=== PATIENT | female | born 1985 | race Caucasian/White ===

== ENCOUNTER 2018-03-08 01:16 | Inpatient (IN) | payer BC ==
[2018-03-08 01:48] VITALS: BMI 35.4
[2018-03-08] MEDS ORDERED: Butorphanol Tartrate 1 MG/ML VIAL SLOW IVP PRN (04:28)
[2018-03-08] MEDS ORDERED: NS / Oxytocin 40 units/1000ml 1,000 ML IV PRN (04:28)
[2018-03-08] MEDS ORDERED: Ondansetron HCl/PF 4 MG/2 ML Vial IVP PRN ×2 (04:28→05:43)
[2018-03-08] MEDS ORDERED: Ibuprofen 800 MG TAB PO PRN (04:28)
[2018-03-08] MEDS ORDERED: HYDROcodone/Acetaminophen 5/325 mg Tablet PO PRN (04:28)
[2018-03-08] MEDS ORDERED: Lidocaine 1% (PF) 30 ML VIAL SC PRN (04:28)
[2018-03-08] MEDS ORDERED: Lactated Ringer's 1,000 ML IV SCH ×2 (04:30)
[2018-03-08] MEDS ORDERED: Bupivacaine 0.5% 20 ML, fentaNYL Citrate/PF 400 MCG in Sodium Chloride 0.9% 72 ML EPIDURAL SCH (04:45)
[2018-03-08 04:47] LABS: Hemoglobin 9.9 g/dL (12.0-16.0); Mean Corpuscular HGB CONC 33.8 g/dL (32.0-36.0); Mean Corpuscular Hemoglobin 29.2 pg (27.0-31.0); Mean Corpuscular Volume 86.2 fl (81.0-99.0); Mean Platelet Volume 7.3 fL (7.4-10.4); Platelet Count 280 thou/uL (130-400); RBC Distribution Width 12.8 % (11.5-14.5); White Blood Cell (WBC) Count 8.8 thou/uL (4.8-10.8)
[2018-03-08 05:22] LABS: HBSAg Index 0.17 S/CO (0-0.99); Hep B Surf Ag Non-Reactive S/CO (NonReactive)
[2018-03-08] MEDS ORDERED: Lactated Ringer's 500 ML IV PRN (05:43)
[2018-03-08] MEDS ORDERED: diphenhydrAMINE 50 MG/ML VIAL IVP PRN (05:43)
[2018-03-08] MEDS ORDERED: Naloxone HCl 0.4 mg/ml Vial IVP PRN ×2 (05:43)
[2018-03-08] MEDS ORDERED: ePHEDrine/0.9% NaCl/PF SYRINGE 50 mg/10 ml SLOW IVP PRN (05:43)
[2018-03-08] MEDS ORDERED: Promethazine HCl 25 MG/ML VIAL IM PRN (05:43)
[2018-03-08] MEDS ORDERED: Acetaminophen 325 MG TAB PO PRN (05:43)
[2018-03-08] MEDS ORDERED: Eucerin (Mineral Oil/Petrolatum,White) 30 gm Jar TOP PRN (05:43)
[2018-03-08] MEDS ORDERED: Fentanyl 4mcg/Marcaine 0.1% Cassette 100 ML EPIDURAL SCH (05:45)
[2018-03-08] MEDS ORDERED: Communication Order-Pharmacy FS SCH (05:45)
[2018-03-08] MEDS ORDERED: NS w/ Oxytocin 10 units 500 ML IVPB SCH (06:30)
[2018-03-08 07:25] LABS: Syphilis Antibody Nonreactive (Nonreactive); Syphilis Antibody Index 0.04 S/CO (<1.00 Non-Reactive)
--- NOTE | 2018-03-08 08:35 | PDOC.OPDEL ---
OB Operative/Delivery Note Delivery Dr/Surgeon: Chris Pre-Delivery Diagnosis: active labor Procedure/Post Delivery Dx: spontaneous vaginal delivery Weeks gestation: 40 Anesthesia: epidural - Findings A Sex: male Weight: 9 lb - 1 min: 9 - 5 min: 9 - Additional Findings/Plan Placenta delivered: spontaneous Repaired Obstetrical Laceration: 1st degree Estimated blood loss: 200ml Compilations/Other Findings: none Post delivery plan: routine recovery
[2018-03-08] MEDS ORDERED: diphenhydrAMINE 25 MG CAP PO PRN (08:37)
[2018-03-08] MEDS ORDERED: Bisacodyl 10 MG SUPP PR PRN (08:37)
[2018-03-08] MEDS ORDERED: Benzocaine/Menthol 20-0.5% 60 ML CAN TOP PRN (08:37)
[2018-03-08] MEDS ORDERED: Preparation H Ointment 28 GM TUBE PR PRN (08:37)
[2018-03-08] MEDS ORDERED: Adacel (T-DAP) 0.5 ML VIAL IM ONE (08:37)
[2018-03-08] MEDS ORDERED: Acetaminophen/Codeine 30-300mg Tablet PO PRN ×2 (08:37)
[2018-03-08] MEDS ORDERED: Lanolin Ointment 7 GM TUBE TOP PRN (08:37)
[2018-03-08] MEDS ORDERED: Milk Of Magnesia 30 ML UDCUP PO PRN (08:37)
[2018-03-08] MEDS ORDERED: Misoprostol 200 MCG TAB VAG SCH (08:45)
[2018-03-08] MEDS ORDERED: NS / Oxytocin 40 units/1000ml 1,000 ML IV SCH (08:45)
[2018-03-08] MEDS: Prenatal Vitamin 1 TAB PO SCH (12:58)
[2018-03-08] MEDS: Docusate Calcium (SURFAK) 240 MG CAP PO SCH ×2 (12:58→21:34)
[2018-03-08] MEDS: Ibuprofen 800 MG TAB PO SCH ×2 (13:09→21:34)
[2018-03-08] MEDS ORDERED: Bupivacaine HCl 0.5%/Epinephrine 1:200,000/PF 30 ml Vial ONE (17:08)
[2018-03-08] MEDS: Ferrous Sulfate 325 MG TAB PO SCH (17:09)
[2018-03-09] MEDS: Ibuprofen 800 MG TAB PO SCH ×2 (05:24→14:20)
--- NOTE | 2018-03-09 07:26 | PDOC.PP ---
Post Progress Note Post Day #: 1 PO intake tolerated: yes Flatus: yes Ambulation: yes Vital Signs (12 hours) Temp Pulse Resp BP 03/09/18 05:24 98.0 F 73 18 110/64 03/09/18 00:50 97.9 F 77 18 116/70 03/08/18 20:10 98.2 F 69 18 118/68 Weight Weight 240 lb - Physical Examination General: NAD Cardiovascular: no m/r/g, RRR Respiratory: clear to auscultation bilaterally, non-labored breathing Abdominal: + bowel sounds, lochia, no distention, appropriately TTP Result Diagrams: 03/08/18 04:28 Additional Labs: Post Labs Blood Type A POSITIVE 03/08/18 04:28 Hep Bs Antigen Non-Reactive S/CO (NonReactive) 03/08/18 04:28 - Assessment/Plan Post day 1-doing well. Discharge home. F/u in 6 weeks. Doing well with ibuprofen for pain.
[2018-03-09 07:54] VITALS: BP 119/82; TEMP 97.7
[2018-03-09] MEDS: Ferrous Sulfate 325 MG TAB PO SCH (09:08)
[2018-03-09] MEDS: Docusate Calcium (SURFAK) 240 MG CAP PO SCH (09:09)
[2018-03-09] MEDS: Prenatal Vitamin 1 TAB PO SCH (09:09)
== END 2018-03-09 16:42 | disposition home or self-care (01) | DRG 775 ==
LOC: L&D/OP 01:16 → L&D 04:18 → 3SW 11:00
PROVIDERS: ADMIT Obstetrics & Gynecology; ATTEND Obstetrics & Gynecology
PROC: 10E0XZZ Delivery of Products of Conception, External Approach (ICD-10-PCS; principal; 2018-03-08)
PROC: 0HQ9XZZ Repair Perineum Skin, External Approach (ICD-10-PCS; 2018-03-08)
DX: O48.0 Post-term pregnancy (principal); O70.0 First degree perineal laceration during delivery; Z3A.38 38 weeks gestation of pregnancy; Z37.0 Single live birth; Z3A.40 40 weeks gestation of pregnancy
CPT/HCPCS: 85027; 86780; 86850; 86900; 86901; 87340; J0670; J2001; J3010; J3490; J7050

== ENCOUNTER 2022-01-16 05:03 | Emergency (ER) | payer BC ==
[2022-01-16 05:35] LABS: Bacteria/HPF None Seen HPF (None Seen); Bilirubin Negative (Negative); Blood, Urine Negative (Negative); Clarity Clear (Clear); Glucose, Urine (Dipstick) Normal (Negative); Ketone, Urine Negative (Negative); Leukocyte 75 Leu/uL (Negative); Nitrite Negative (Negative); Protein, Urine (Dipstick) Negative (Neg-Trace); RBC/HPF 0-3 HPF (0-3); Specific Gravity, Urine 1.019 (1.002-1.036); Squamous Epithelial 0-3 HPF (0-3); Urobilinogen Normal mg/dL (Less than 2)
[2022-01-16 05:37] LABS: Pregnancy Test - Urine (BHCG) Negative (Negative); Pregu Control Background? CLEAR/WHITE (CLR/WHITE); Pregu Control Bar Appear? YES (CONTROL BAR); Specific Gravity 1.019 (1.002-1.036)
[2022-01-16] MEDS ORDERED: Ketorolac Tromethamine 30 MG/ML VIAL ONE (06:01)
[2022-01-16] MEDS ORDERED: Fluconazole 100 MG TAB PO SCH (06:15)
[2022-01-16 10:52] LABS: Chlam.trachomatis by PCR,Urine Not Detected (NotDetected)
== END 2022-01-16 06:28 | disposition home or self-care (01) ==
LOC: ERS 05:03
DX: N76.0 Acute vaginitis (principal)
CPT/HCPCS: 81003; 81015; 81025; 87480; 87491; 87510; 87591; 87660; 96372; 99283; J1885

== ENCOUNTER 2022-11-10 14:33 | Outpatient (CLI) | payer BC | END 2022-11-10 14:34 | disposition home or self-care (01) | LOC: BICMAMMO 14:33 | PROVIDERS: ATTEND Internal Medicine | DX: N64.4 Mastodynia (principal) | CPT/HCPCS: 77066; G0279 ==